=== PATIENT | male | born 1965 | race Caucasian/White ===

== ENCOUNTER 2022-03-28 07:51 | Day surgery (SDC) | payer BC ==
[2022-03-27 14:24] VITALS: BMI 26.5
[2022-03-28 08:12] VITALS: RESP 20
[2022-03-28] MEDS ORDERED: PROPOFOL 120 ML ONE (08:16)
[2022-03-28 09:18] VITALS: TEMP 97.8
[2022-03-28 09:45] VITALS: BP 112/68; PULSE 72
== END 2022-03-28 09:40 | disposition home or self-care (01) ==
LOC: FASU-ENDO 07:51
PROVIDERS: ATTEND Internal Medicine Gastroenterology
PROC: 0DJD8ZZ Inspection of Lower Intestinal Tract, Via Natural or Artificial Opening Endoscopic (ICD-10-PCS; principal; 2022-03-28 08:47)
DX: Z12.11 Encounter for screening for malignant neoplasm of colon (principal)